=== PATIENT | female | born 2000 | race Caucasian/White ===

== ENCOUNTER 2023-02-17 14:51 | Outpatient (CLI) | payer SELFPAY ==
--- NOTE | 2023-02-17 15:00 | CRLHL7_ITS ---
For Patients: As a result of the Cures Act, medical imaging exams and procedure reports are released immediately into your electronic medical record. You may view this report before your referring provider. If you have questions, please contact your health care provider. INDICATION: First trimester scan, establish dates. COMPARISON: None. TECHNIQUE: Real-time escamilla-scale imaging of the pelvis was performed. FINDINGS: Sonographic imaging demonstrates a single living intrauterine gestation. The embryo demonstrates a regular cardiac rate measuring 180 beats per minute. The embryo`s crown-rump length measurement of 3.4 cm corresponds to a gestational age of 10 weeks 2 days with a sonographic due date of 09/13/2019. There is a normal-appearing yolk sac. There are no gross abnormalities noted within the embryo at this early state of development. The gestational sac has a normal appearance. There is no evidence of a perigestational hemorrhage. The amount of fluid within the sac appears appropriate for gestational age. The cervix is closed. The myometrium appears normal. The ovaries are of normal size. There are no suspicious fluid collections noted in the cul-de-sac. IMPRESSION: Normal first trimester OB ultrasound exam. Gestational age calculated at 10 weeks 2 days with a sonographic due date of 09/13/2023. Dictated by Giovanni Valenzuela MD @ 02/18/2023 10:44:37 AM (Electronically Signed)
== END 2023-02-17 14:52 | disposition home or self-care (01) ==
LOC: US 14:52
PROVIDERS: Visit Provider Registered Nurse
DX: Z34.91 Encounter for supervision of normal pregnancy, unspecified, first trimester (principal); Z3A.10 10 weeks gestation of pregnancy
CPT/HCPCS: 76801

== ENCOUNTER 2023-02-17 15:58 | Outpatient (CLI) | payer SELFPAY ==
[2023-02-17 22:20] LABS: Chlamydia DNA Amplified* NOT DETECTED (No Detected); GC DNA Amplified* NOT DETECTED (No Detected)
== END 2023-02-17 15:59 | disposition home or self-care (01) ==
PROVIDERS: Visit Provider Registered Nurse
DX: Z34.91 Encounter for supervision of normal pregnancy, unspecified, first trimester (principal); Z3A.10 10 weeks gestation of pregnancy
CPT/HCPCS: 86592; 86703; 86704; 86706; 86762; 86787; 86803; 86850; 86900; 86901; 87086; 87340; 87491; 87591

== ENCOUNTER 2024-02-13 13:53 | Emergency (ER) | payer MEDICAID, SELFPAY ==
[2024-02-13 13:56] VITALS: BP 110/75; PULSE 85; RESP 18; O2SAT 98; BMI 32.9
[2024-02-13 14:26] VITALS: TEMP 36.4
--- NOTE | 2024-02-13 14:46 | ED.ABDPAIN ---
HPI - Abdominal Pain General Chief Complaint: Abdominal Pain Stated Complaint: blood in stool for a few weeks, getting worse Time Seen by Provider: 02/13/24 14:03 History of Present Illness HPI narrative: This 23-year-old female comes in reporting some bright red blood in the toilet when having bowel movement. This is been happening over the past couple weeks. She is attributed to hemorrhoids. She did have peripartum hemorrhoid issues. Today she developed some upper epigastric abdominal pain in addition to this. She does not report any nausea, vomiting, or fevers. She has not been on any recent antibiotics. She does not have any personal or family history of colon disease. Related Data Home Medications ?Medication ?Instructions ?Recorded ?Confirmed docosahexaenoic acid 200 mg mg PO 02/17/23 03/17/23 capsule ( DHA) Previous Rx's ?Medication ?Instructions ?Recorded hydrocortisone acetate 25 mg 25 mg RI BID #12 ea 02/13/24 rectal suppository (Anusol-HC) Allergies Allergy/AdvReac Type Severity Reaction Status Date / Time No Known Drug Allergies Allergy Verified 03/17/23 14:50 Review of Systems Status of ROS Reports: 10 or more systems reviewed and unremarkable except as noted in History and below Narrative Constitutional: No fevers, no weight gain or loss. Eyes: No discharge. No vision changes. HENT: No congestion, no sore throat, no ear pain. Cardiovascular: No chest pain, no palpitations. Respiratory: No shortness of breath, no wheezes, no cough. Gastrointestinal: No vomiting, no diarrhea. Upper epigastric abdominal pain. Genitourinary: No dysuria, no hematuria. Musculoskeletal: Normal range of motion. Skin: No rashes, no pruritis. Neurological: No dizziness, weakness, sensory change, speech change. Endo/Heme/Allergies: No bruising or bleeding. No polydipsia. Pysch: no suicidality, no anxiety, no insomnia. All other systems reviewed and are negative. [facility] Medical History Normal spontaneous vaginal delivery (02/21/20) ?O80 - Encounter for full-term uncomplicated delivery (ICD-10) Family History Mother Depression Father Substance abuse Grandfather Diabetes Social History What is your current living situation?: I presently have a place to live Problems where you live: no known problems In the past 12 months, utilities in danger of being shut off: no In past 12 months, lack of transportation kept you from medical appts, meetings, work, or getting things needed for daily living: no In the past 12 mos, have been you worried that your food would run out before you had money to buy more?: never true In the past 12 mos, the food you bought just didn't last and you didn't have money to buy more?: never true How often does anyone, including family, friends and others, physically hurt you: never How often does anyone, including family, friends and others, insult or talk down to you: rarely How often does anyone, including family, friends and others, threaten you with harm: never How often does anyone, including family, friends and others, scream or curse at you: never Little interest or pleasure in doing things: not at all Feeling down, depressed, or hopeless: not at all Exam Narrative: Exam Narrative: Constitutional: Well-developed, well-nourished, no acute distress. HEENT: Normocephalic, atraumatic. Neck: Normal range of motion. Nontender. Supple. Heart: Regular. No murmurs. Normal rate. Intact distal pulses. Lungs: Clear to auscultation. No chest discomfort. No wheezes, rhonchi, or rales. Abdomen: Normal bowel sounds. Mild tenderness in the upper epigastric region. No rebound tenderness. Genitalia: Deferred. Back: No midline tenderness. Normal range of motion. Extremities: Normal range of motion. No injury. Skin: Intact. No rash. Warm. No erythema or pallor. Neurologic: No altered sensation. No weakness. Alert and oriented. Psychiatric: No suicidality. No anxiety or depression. No insomnia. Nursing notes and vitals signs are reviewed. Const: Vital Signs, click to edit/add: Vital Signs - 24 hr 02/13/24 13:56 02/13/24 14:26 Temperature 97.6 F Pulse Rate [Right Pulse Oximeter] 85 Respiratory Rate 18 Blood Pressure [Ri ght Upper Arm] 110/75 Pulse Oximetry 98 Oxygen Delivery Me thod Room Air Course Vital Signs Vital signs: Initial Vital Signs Pulse Rate 85 02/13/24 13:56 Pulse Rhythm Regular 02/13/24 13:56 Pulse Strength 3+ Normal 02/13/24 13:56 Respiratory Rate 18 02/13/24 13:56 Blood Pressure 110/75 02/13/24 13:56 Blood Pressure Mean 86 02/13/24 13:56 Blood Pressure Position Sitting 02/13/24 13:56 Pulse Oximetry 98 02/13/24 13:56 Oxygen Delivery Method Room Air 02/13/24 13:56 Vital Signs Pulse Rate 85 02/13/24 13:56 Respiratory Rate 18 02/13/24 13:56 Blood Pressure 110/75 02/13/24 13:56 Pulse Oximetry 98 02/13/24 13:56 Oxygen Delivery Method Room Air 02/13/24 13:56 Temperature 97.6 F 02/13/24 14:26 Pulse Rate 85 02/13/24 13:56 Respiratory Rate 18 02/13/24 13:56 Blood Pressure 110/75 02/13/24 13:56 Pulse Oximetry 98 02/13/24 13:56 Oxygen Delivery Method Room Air 02/13/24 13:56 MDM - Abdominal Pain MDM Narrative Medical decision making narrative: This patient comes in reporting some epileptic gastric abdominal pain but also has had some bleeding in the toilet as described above. She arrives with normal vital signs. Her abdominal exam is normal. She does have some mild upper epigastric pain that she rates at 4/10 in severity. I am able to palpate rather deeply into her abdomen without any sign of significant discomfort. I did use bedside ultrasound and saw normal anatomy across her upper abdomen. As for her rectal bleeding it seems more likely due to hemorrhoids as she has had an issue with this in the past. She does not have any personal or family history of colon disease. I did prescribe Anusol and advised her to follow-up with her primary physician or return if worsening. Discharge Plan Discharge Clinical Impression: Bright red rectal bleeding, Abdominal pain Patient Disposition: Home, Self-Care Condition: Stable Additional Instructions: Use medication as prescribed. Also consider using medicine such as Prilosec, Nexium, or Prevacid as needed and directed for upper epigastric abdominal discomfort. Follow up with MD return if worsening. Prescriptions: New hydrocortisone acetate [Anusol-HC] 25 mg suppository 25 mg RI BID Qty: 12 0RF No Action DHA 200 mg capsule PO Follow Up/Referrals: Provider,Not a Local [Primary Care Provider] - Stand Alone Forms: [facility] Info Instructions Procedures Ultrasound Biliary exam #1: Anatomical areas examined: gallbladder, long and short axis Indications: RUQ/epigastric pain Exam type: limited abdominal ultrasound; RUQ Impression: normal exam Description/Findings: Normal anatomy in the upper abdomen.
== END 2024-02-13 15:44 | disposition home or self-care (01) ==
PROVIDERS: Emergency Provider Emergency Medicine Emergency Medical Services
DX: K62.5 Hemorrhage of anus and rectum (principal); R10.9 Unspecified abdominal pain
CPT/HCPCS: 76705; 99283; 99284